=== PATIENT | male | born 1980 | race Hispanic/Latino ===

== ENCOUNTER 2021-02-28 12:13 | Emergency (ER) | payer SELFPAY ==
[~2021-02-28] VITALS: Ht 165.1 cm; Wt 81.0 kg
[2021-02-28] MEDS ORDERED: AMOX/K CLAV875 M1 PO (12:44)
[2021-02-28 12:58] VITALS: BP 137/81
== END 2021-02-28 13:06 | disposition home or self-care (01) | DRG 605 ==
LOC: ED 12:13
DX: S80.871A Other superficial bite, right lower leg, initial encounter (principal); W54.0XXA Bitten by dog, initial encounter; Y93.55 Activity, bike riding; Y92.410 Unspecified street and highway as the place of occurrence of the external cause